=== PATIENT | female | born 1990 | race Asian ===

== ENCOUNTER 2019-07-06 20:14 | Emergency (ER) | payer BC ==
[~2019-07-06] VITALS: Ht 165.1 cm; Wt 59.4 kg
[2019-07-06 21:12] VITALS: BP 110/75; TEMP 98.2
== END 2019-07-06 21:12 | disposition home or self-care (01) ==
LOC: ED 20:14
DX: J02.9 Acute pharyngitis, unspecified (principal)
CPT/HCPCS: 87651; 99283

== ENCOUNTER 2019-12-31 20:21 | Emergency (ER) | payer BC ==
[~2019-12-31] VITALS: Ht 165.1 cm; Wt 59.4 kg
[2019-12-31 21:10] VITALS: BP 108/73; TEMP 98.2
== END 2019-12-31 21:10 | disposition home or self-care (01) ==
LOC: ED 20:21
DX: H10.89 Other conjunctivitis (principal); H20.9 Unspecified iridocyclitis
CPT/HCPCS: 99283

== ENCOUNTER 2020-06-17 21:19 | Emergency (ER) | payer BC ==
[~2020-06-17] VITALS: Ht 165.1 cm; Wt 49.0 kg
[2020-06-17] MEDS ORDERED: CALNA PO (21:42)
[2020-06-17 21:52] LABS: PLATELET COUNT 363 K/uL (152-353)
[2020-06-17 22:15] LABS: POTASSIUM 4.3 mmol/L (3.6-5.2)
[2020-06-17 22:19] LABS: PARTIAL THROMBOPLASTIN TIME 23.3 SECONDS (24.5-33.6)
[2020-06-17 23:41] VITALS: BP 103/60; TEMP 99.2
== END 2020-06-17 23:50 | disposition home or self-care (01) ==
LOC: ED 21:19
PROVIDERS: Hospitalist
DX: Z3A.01 Less than 8 weeks gestation of pregnancy (principal); O21.1 Hyperemesis gravidarum with metabolic disturbance; E86.0 Dehydration
CPT/HCPCS: 36415; 80053; 81000; 84702; 85027; 85610; 85730; 96360; 96375; 99284; J2405

== ENCOUNTER 2021-07-14 02:00 | Emergency (ER) | payer BC, OTHER ==
[~2021-07-14] VITALS: Ht 165.1 cm; Wt 60.8 kg
[~2021-07-14 02:00] MED LIST: CALNA PO
[2021-07-14 03:02] LABS: PLATELET COUNT 375 K/uL (152-353)
[2021-07-14 03:04] LABS: POTASSIUM 3.5 mmol/L (3.6-5.2)
[2021-07-14 04:45] VITALS: BP 130/78; TEMP 98.1
== END 2021-07-14 04:50 | disposition home or self-care (01) ==
LOC: ED 02:00
PROVIDERS: Family Medicine
DX: K52.89 Other specified noninfective gastroenteritis and colitis (principal); R73.9 Hyperglycemia, unspecified; R11.2 Nausea with vomiting, unspecified
CPT/HCPCS: 36415; 80053; 81000; 81025; 82150; 83690; 85027; 96360; 96372; 96375; 99284; J1200; J2405; J2550

== ENCOUNTER 2021-07-17 10:32 | Outpatient (CLI) | payer BC, OTHER ==
[~2021-07-17] VITALS: Ht 165.1 cm; Wt 68.0 kg
[2021-07-17 11:36] LABS: POTASSIUM 3.2 mmol/L (3.6-5.2)
== END 2021-07-17 18:58 | disposition home or self-care (01) ==
LOC: INF 10:32
PROVIDERS: ATTEND Family Medicine
DX: E86.0 Dehydration (principal); R11.2 Nausea with vomiting, unspecified
CPT/HCPCS: 36591; 80053; 82150; 83690; 96365

== ENCOUNTER 2022-01-10 04:16 | Emergency (ER) | payer BC, OTHER ==
[~2022-01-10] VITALS: Ht 165.1 cm; Wt 68.0 kg
[2022-01-10] MEDS ORDERED: AMOX875T8 PO (05:07)
[2022-01-10 05:23] VITALS: BP 132/75; TEMP 98.4
== END 2022-01-10 05:23 | disposition home or self-care (01) ==
LOC: ED 04:16
DX: J06.9 Acute upper respiratory infection, unspecified (principal)
CPT/HCPCS: 87651; 96372; 99283; J0696; J1885

== ENCOUNTER 2022-02-05 00:25 | Emergency (ER) | payer OTHER, BC ==
[~2022-02-05] VITALS: Ht 165.1 cm; Wt 68.0 kg
[~2022-02-05 00:25] MED LIST changes: +AMOX875T8 PO
[2022-02-05 00:27] VITALS: TEMP 98.5
[2022-02-05 03:00] VITALS: BP 134/76
== END 2022-02-05 03:00 | disposition home or self-care (01) ==
LOC: ED 00:25
PROC: 0HQFXZZ Repair Right Hand Skin, External Approach (ICD-10-PCS; principal; 2022-02-05)
DX: S61.411A Laceration without foreign body of right hand, initial encounter (principal); S61.316A Laceration without foreign body of right little finger with damage to nail, initial encounter; S61.212A Laceration without foreign body of right middle finger without damage to nail, initial encounter; W31.89XA Contact with other specified machinery, initial encounter; Y92.69 Other specified industrial and construction area as the place of occurrence of the external cause
CPT/HCPCS: 90715; 96372; 99283; J0696; J2175; J2405

== ENCOUNTER 2022-02-19 00:42 | Emergency (ER) | payer OTHER, BC ==
[~2022-02-19] VITALS: Ht 165.1 cm; Wt 68.0 kg
[2022-02-19 01:10] VITALS: BP 120/78; TEMP 97.4
== END 2022-02-19 01:10 | disposition home or self-care (01) ==
LOC: ED 00:42
DX: Z48.02 Encounter for removal of sutures (principal)

== ENCOUNTER 2022-05-08 13:18 | Observation (INO) | payer OTHER ==
[~2022-05-08] VITALS: Ht 165.1 cm; Wt 56.4 kg
[2022-05-08 15:06] LABS: PLATELET COUNT 528 K/uL (152-353)
[2022-05-08 15:17] LABS: POTASSIUM 3.5 mmol/L (3.6-5.2)
[2022-05-08 16:00] VITALS: BP 138/89; TEMP 98.6
[2022-05-08 18:53] VITALS: BP 124/88; TEMP 98.1; Ht 165.1 cm; Wt 56.4 kg
[2022-05-08 20:00] VITALS: BP 109/70; TEMP 98
[2022-05-08] MEDS ORDERED: PEPCID40 MG PO (20:10)
[2022-05-08] MEDS ORDERED: PROM25TA52 PO (20:12)
[2022-05-08] MEDS ORDERED: JUNEL F1 PO (20:13)
[2022-05-08] MEDS ORDERED: ESTRADIOL PO (20:17)
[2022-05-09] VITALS: BP 134/88; TEMP 98.2
[2022-05-09 04:00] VITALS: BP 110/75; TEMP 97.7
[2022-05-09 04:42] LABS: POTASSIUM 3.8 mmol/L (3.6-5.2)
[2022-05-09 08:00] VITALS: BP 116/79; TEMP 98.3
[2022-05-09] MEDS ORDERED: PANTOPRAZOLE 40MG TA PO (09:58)
[2022-05-09] MEDS ORDERED: PROM25TA52 PO (09:58)
== END 2022-05-09 11:34 | disposition home or self-care (01) ==
LOC: MED/SURG 13:18
PROVIDERS: ADMIT Internal Medicine; ATTEND Internal Medicine
DX: R11.2 Nausea with vomiting, unspecified (principal); R63.4 Abnormal weight loss; R94.6 Abnormal results of thyroid function studies; F45.8 Other somatoform disorders; D57.80 Other sickle-cell disorders without crisis
CPT/HCPCS: 36415; 80053; 80307; 81002; 82550; 83605; 83735; 84145; 84439; 84443; 85027; 86376; 86800; 87635; 96360; 96361; 96375; 99220; G0378; G0379; J2405; J2550; U0003

== ENCOUNTER 2022-07-21 15:18 | Inpatient (IN) | payer OTHER ==
[~2022-07-21] VITALS: Ht 165.1 cm; Wt 55.5 kg
[~2022-07-21 15:18] MED LIST changes: +AMOX500C85 PO; +CLAR500T PO; +ESTRADIOL PO; +JUNEL F1 PO; +OMEP20CA PO; +PANTOPRAZOLE 40MG TA PO; +PEPCID40 MG PO; +PROM25TA52 PO
[2022-07-21 15:50] VITALS: BP 132/86; TEMP 97.3; Ht 165.1 cm; Wt 55.5 kg
[2022-07-21 16:12] LABS: PLATELET COUNT 423 K/uL (152-353)
[2022-07-21 16:52] LABS: POTASSIUM 3.1 mmol/L (3.6-5.2)
[2022-07-21] MEDS ORDERED: METOCLOPRAMIDE10 M1 PO (17:38)
[2022-07-21 20:00] VITALS: BP 139/87; TEMP 98.5
[2022-07-22] VITALS: BP 132/70; TEMP 98.4
[2022-07-22 04:00] VITALS: BP 139/79; TEMP 98.4
[2022-07-22 05:30] LABS: PLATELET COUNT 413 K/uL (152-353)
[2022-07-22 05:49] LABS: POTASSIUM 4.1 mmol/L (3.6-5.2)
[2022-07-22 07:50] VITALS: BP 147/83; TEMP 98.7
[2022-07-22 12:00] VITALS: BP 146/83; TEMP 98.9
[2022-07-22 16:00] VITALS: BP 106/68; TEMP 98.6
[2022-07-22 20:00] VITALS: BP 150/90; TEMP 99.1
[2022-07-23] VITALS: BP 148/74; TEMP 98.6
[2022-07-23 04:00] VITALS: BP 129/88; TEMP 98.5
[2022-07-23 04:47] LABS: PLATELET COUNT 407 K/uL (152-353)
[2022-07-23 05:13] LABS: POTASSIUM 3.8 mmol/L (3.6-5.2)
[2022-07-23 07:38] VITALS: BP 120/76; TEMP 98.8
[2022-07-23 11:36] VITALS: BP 143/89; TEMP 98.6
[2022-07-23 15:41] VITALS: BP 130/77; TEMP 98.9
[2022-07-23 20:00] VITALS: BP 135/84; TEMP 99.3
[2022-07-24] VITALS: BP 108/61; TEMP 98.4
[2022-07-24 04:00] VITALS: BP 136/91; TEMP 99.1
[2022-07-24 08:00] VITALS: BP 151/84; TEMP 98.3
[2022-07-24 12:23] VITALS: BP 136/78; TEMP 98.3
[2022-07-24 15:57] VITALS: BP 102/67; TEMP 98.1
[2022-07-24] MEDS ORDERED: PROM25SU RE (16:14)
== END 2022-07-24 17:18 | disposition home or self-care (01) | DRG 103 ==
LOC: MED/SURG 15:18
PROVIDERS: ADMIT Internal Medicine; ATTEND Internal Medicine
DX: G43.A0 Cyclical vomiting, in migraine, not intractable (principal); F12.10 Cannabis abuse, uncomplicated; A04.8 Other specified bacterial intestinal infections; B96.81 Helicobacter pylori [H. pylori] as the cause of diseases classified elsewhere; K92.0 Hematemesis; E87.6 Hypokalemia
CPT/HCPCS: 36415; 80053; 80307; 81002; 82150; 83605; 83690; 83735; 84100; 85027; 87177; 87209; 87328; 87329; 96361; 96365; 96367; 96375; 96376; 99220; 99221; G0378; G0379; J0290; J1630; J2405; J2550; J3490

== ENCOUNTER 2023-01-03 08:05 | Emergency (ER) | payer OTHER ==
[~2023-01-03] VITALS: Ht 165.1 cm; Wt 50.8 kg
[~2023-01-03 08:05] MED LIST changes: +METOCLOPRAMIDE10 M1 PO; +PROM25SU RE
[2023-01-03 08:09] VITALS: TEMP 99.6
[2023-01-03 08:48] LABS: PLATELET COUNT 417 K/uL (152-353)
[2023-01-03 08:54] LABS: POTASSIUM 3.5 mmol/L (3.6-5.2)
[2023-01-03 12:16] VITALS: BP 108/65
== END 2023-01-03 12:16 | disposition home or self-care (01) ==
LOC: ED 08:05
PROVIDERS: Family Medicine
DX: R10.9 Unspecified abdominal pain (principal); R11.2 Nausea with vomiting, unspecified; K29.60 Other gastritis without bleeding
CPT/HCPCS: 80053; 80307; 81000; 81025; 83690; 85027; 96361; 96374; 96375; 99284; J1200; J2405; J2765; Q9963